=== PATIENT | female | born 1965 | race Native Hawaiian/Other Pacific Islander ===

== ENCOUNTER 2019-01-06 21:37 | Emergency (ER) | payer OTHER, MEDICARE ==
[2019-01-06 21:38] VITALS: BMI 20.4
[2019-01-06 21:47] VITALS: O2SAT 98
[2019-01-06 22:18] LABS: BASO # 0.1 K/uL (0.0-0.2); BASO % 1.3 % (0.0-2.0); EOS # 0.4 K/uL (0.0-0.7); EOS % 5.7 % (0.0-4.0); HEMOGLOBIN 12.8 g/dL (11.0-16.0); LYMPH # 2.1 K/uL (1.0-4.3); MEAN CELL VOLUME 87.5 fL (81.0-99.0); MEAN CORPUSCULAR HEMOGLOBIN 29.8 pg (27.0-31.0); MEAN CORPUSCULAR HGB CONC 34.1 g/dL (33.0-37.0); MEAN PLATELET VOLUME 7.9 fL (7.2-11.7); MONO # 0.5 K/uL (0.0-0.8); MONO % 7.7 % (0.0-10.0); NEUT # 3.9 K/uL (1.8-7.0); NEUT % 55.3 % (50.0-75.0); RBC 4.29 Mil/uL (3.80-5.20); RED CELL DISTRIBUTION WIDTH 13.1 % (11.5-14.5); WHITE BLOOD COUNT 7.1 K/uL (4.8-10.8)
[2019-01-06 22:25] LABS: PROTHROMBIN TIME 10.9 SECONDS (9.7-12.2)
[2019-01-06] MEDS ORDERED: Silver Nitrate Topical - Stick ONE ×3 (22:35→22:51)
[2019-01-06] MEDS ORDERED: Silver Nitrate Topical - Stick TOP ONE (22:40)
--- NOTE | 2019-01-06 22:52 | CP.PCM.CON ---
History of Present Illness - History of Present Illness History of Present Illness: 53 yo with vaginal bleeding s/p Robotic Hysterectomy POD #18. Pt states bleeding started today, with passage of large blood clots. Pt noticed bleeding after strained BM. Pt denies any pelvic pain. Past Patient History - Past Medical History & Family History Past Medical History?: Yes - Past Social History Smoking Status: Never Smoked - CARDIAC Hx Cardiac Disorders: Yes (CARDIOMYOPATHY) Hx Angina: Yes Hx Cardia Arrhythmia: Yes Hx Congestive Heart Failure: Yes (2015) Hx Hypercholesterolemia: Yes Hx Hypertension: Yes Hx Pacemaker: Yes Hx Peripheral Edema: Yes (NOT AT PRESENT) Other/Comment: PACEMAKER - PULMONARY Hx Respiratory Disorders: Yes (SOB) - NEUROLOGICAL Hx Neurological Disorder: Yes Hx Dizziness: Yes - HEENT Hx HEENT Problems: No - RENAL Hx Chronic Kidney Disease: No - ENDOCRINE/METABOLIC Hx Endocrine Disorders: No - HEMATOLOGICAL/ONCOLOGICAL Hx Blood Disorders: Yes Hx Anemia: Yes Hx Blood Transfusions: No - INTEGUMENTARY Hx Dermatological Problems: No - MUSCULOSKELETAL/RHEUMATOLOGICAL Hx Musculoskeletal Disorders: No - GASTROINTESTINAL Hx Gastrointestinal Disorders: No - GENITOURINARY/GYNECOLOGICAL Hx Genitourinary Disorders: Yes (FIBROIDS ) - PSYCHIATRIC Hx Psychophysiologic Disorder: No Hx Substance Use: No - SURGICAL HISTORY Hx Surgeries: Yes Hx Cardiac Catheterization: Yes (2015) Other/Comment: december 19 2018 --- fibroid removal - ANESTHESIA Hx Anesthesia: Yes Hx Anesthesia Reactions: No Hx Malignant Hyperthermia: No Meds Allergies/Adverse Reactions: Allergies Allergy/AdvReac Type Severity Reaction Status Date / Time No Known Allergies Allergy Verified 01/06/19 21:46 Physical Exam - Exam Additional comments: Slow bleed from right apex of vaginal cuff. Stitches intact. vaginal cuff integrity intact, no bowel or pelvic tissue seen Results - Vital Signs Recent Vital Signs: Last Vital Signs Temp 98 F 01/06/19 21:42 Pulse 62 01/06/19 21:42 Resp 18 01/06/19 21:42 BP 161/97 H 01/06/19 21:42 Pulse Ox 98 01/06/19 21:42 - Labs Result Diagrams: 01/06/19 22:14 Labs: Laboratory Results - last 24 hr 01/06/19 01/06/19 22:14 22:14 WBC 7.1 RBC 4.29 Hgb 12.8 Hct 37.6 MCV 87.5 MCH 29.8 MCHC 34.1 RDW 13.1 Plt Count 319 MPV 7.9 Neut % (Auto) 55.3 Lymph % (Auto) 30.0 [place] % (Auto) 7.7 Eos % (Auto) 5.7 H Baso % (Auto) 1.3 Neut # (Auto) 3.9 Lymph # (Auto) 2.1 [place] # (Auto) 0.5 Eos # (Auto) 0.4 Baso # (Auto) 0.1 PT 10.9 INR 1.0 APTT 44 H Assessment & Plan - Assessment and Plan (Free Text) Plan: A/P: 53 yo with vaginal bleeding - stable, afebrile - Hgb 12.8 - Vaginal bleeding - hemostasis achieved with silver nitrate sticks and pressure. Vaginal packed with kerlex packing. - Pt reassured. F/U in office tomorrow, to remove packing - precautions given to return to ER if bleeding worsens or pain - recommend colace to soften stool - continue ASA 81mg - F/U in office tomorrow
[2019-01-06 22:56] VITALS: BP 158/81; PULSE 61; RESP 16; TEMP 98.2
--- NOTE | 2019-01-07 04:31 | C.PDOC ---
History Of Present Illness 53 year old female presents to the ED for evaluation of abdominal pain associated with vaginal bleeding. Patient was sent to the ED by her MUSEUM DIRECTOR, Dr. Rosa, for further evaluation. She denies fever, chills, and vomiting. Chief Complaint (Nursing): Abdominal Pain History Per: Patient History/Exam Limitations: no limitations Onset/Duration Of Symptoms: Hrs Current Symptoms Are (Timing): Still Present Quality Of Discomfort: "Pain" Additional History Per: Patient Abnormal Vaginal Bleeding: Yes Past Medical History Reviewed: Historical Data, Nursing Documentation, Vital Signs Vital Signs: Last Vital Signs Temp 98.2 F 01/06/19 22:55 Pulse 61 01/06/19 22:55 Resp 16 01/06/19 22:55 BP 158/81 H 01/06/19 22:55 Pulse Ox 98 01/06/19 22:55 - Medical History PMH: Anemia, Cardia Arrhythmia, CHF (2016), HTN, Hypercholesterolemia, Peripheral Edema (NOT AT PRESENT) Denies: Chronic Kidney Disease Surgical History: Pacemaker Family History: States: Unknown Family Hx - Social History Hx Alcohol Use: No Hx Substance Use: No Review Of Systems Constitutional: Negative for: Fever, Chills Gastrointestinal: Positive for: Abdominal Pain. Negative for: Vomiting Genitourinary: Positive for: Vaginal Bleeding Physical Exam - Physical Exam Appears: Non-toxic, No Acute Distress Skin: Normal Color, Warm, Dry Head: Atraumatic, Normacephalic Eye(s): bilateral: Normal Inspection Oral Mucosa: Moist Neck: Supple Chest: Symmetrical, No Deformity, No Tenderness Cardiovascular: Rhythm Regular, No Murmur Respiratory: Normal Breath Sounds, No Rales, No Rhonchi, No Wheezing Gastrointestinal/Abdominal: Soft, No Tenderness, No Guarding, No Rebound Pelvic: Other (deferred) Extremity: Normal ROM, Capillary Refill (less than 2 seconds ) Neurological/Psych: Normal Speech, Normal Cognition ED Course And Treatment - Laboratory Results Result Diagrams: 01/06/19 22:14 Lab Results: PT 10.9 SECONDS (9.7-12.2) 01/06/19 22:14 INR 1.0 01/06/19 22:14 APTT 44 SECONDS (21-34) H 01/06/19 22:14 O2 Sat by Pulse Oximetry: 98 (on RA) Pulse Ox Interpretation: Normal Medical Decision Making Medical Decision Making: Progress: Bloodwork ordered and reviewed. Case was discussed with Dr. Rosa, who evaluated the patient at bedside and performed pelvic exam. Dr. Rosa states he will follow up with patient tomorrow morning. On reassessment, patient is resting comfortably, showing no signs of distress and is stable for discharge. Disposition - Disposition Referrals: Chris Rosa DO [Staff Provider] - Disposition: HOME/ ROUTINE Disposition Time: 22:45 Condition: GOOD Additional Instructions: PRABHU FARRELL, thank you for letting us take care of you today. The emergency medical care you received today was directed at your acute symptoms. If you were prescribed any medication, please fill it and take as directed. It m ay take several days for your symptoms to resolve. Return to the Emergency Department if your symptoms worsen, do not improve, or if you have any other problems. Please contact your doctor or call one of the physicians/clinics you have been referred to that are listed on the Patient Visit Information form that is included in your discharge packet. Bring any paperwork you were given at discharge with you along with any medications you are taking to your follow up visit. Our treatment cannot replace ongoing medical care by a primary care provider outside of the emergency department. Thank you for allowing the [facility] team to be part of your care today. Follow up with your PACK WORKER doctor as scheduled for re-evaluation and further management. Instructions: Heavy Periods (DC) Forms: [place] (Kyrgyz) - Clinical Impression Clinical Impression: Vaginal bleeding - Scribe Statement The provider has reviewed the documentation as recorded by the Scribe (Jillian Martin) Provider Attestation: All medical record entries made by the Scribe were at my direction and personally dictated by me. I have reviewed the chart and agree that the record accurately reflects my personal performance of the history, physical exam, [facility] decision making, and the department course for this patient. I have also personally directed, reviewed, and agree with the discharge instructions and disposition.
== END 2019-01-06 23:02 | disposition home or self-care (01) ==
LOC: C.ER 21:37
DX: N93.9 Abnormal uterine and vaginal bleeding, unspecified (principal); I11.0 Hypertensive heart disease with heart failure; I50.9 Heart failure, unspecified; E78.00 Pure hypercholesterolemia, unspecified